=== PATIENT | male | born 1950 | race Two or more races ===

== ENCOUNTER 2017-09-14 09:20 | Emergency (ER) | payer OTHER ==
[2017-09-14 09:34] VITALS: BMI 31.1
--- NOTE | 2017-09-14 10:16 | PDOC ---
History of Present Illness - General History Source: Patient Exam Limitations: No Limitations - History of Present Illness Initial Comments: 09/14/17 12:03 The patient is a 66 year old male with past medical history of HTN, chronic back pain, anxiety (no medication), depression (no medication) and hospitalization for Hep C (?) in the past presents to the emergency department with epigastric pain. The patient reports an onset of intermittent epigastric pain for the past 6 months, with initial duration of 5-6 minutes thats been progressively shortening and severity has been improving. The patient states the pain presents at the epigastric region with radiating burning sensation that diffuses across the upper quadrant. The patient reports the pain is aggravated shortly after eating, with occasional relief noted after drinking water. Not significantly wose on a reclined position. The patient reports associated symptom of very little nausea and generalized warmth. The patient states he was referred for a colonoscopy and was recommended to perform a home stool test kit, which he didnt follow through. The patient states he was referred to a GI doctor by his PCP, but didnt follow up. Denies associated vomiting, hemoptysis, diarrhea, melena, bpr, diarrhea, cp, sob, worsening on exertion, cough, numbness/tingling/weakness. The patient reports a secondary concern of bilateral lower extremity edema. The patient reports a history of intermittent onset of leg swelling, thats been progressively worsening for the last 3 days, without pain or relief. The patient states the swelling is aggravated by ambulation, with relief noted in the morning. Denies associated orthopnea, landers, cp, sob, hemoptysis, leg pain. Allergies: NKDA Social history: The patient reports the use of 10 cigarettes per daily. Denies the use of alcohol or recreational drugs. Surgical history: None reported. PCP: Dr. Harrison Funez <Antonella James - Last Filed: 09/14/17 12:03> <Eliu Ann - Last Filed: 09/14/17 13:55> - General Chief Complaint: Pain, Acute Stated Complaint: ABD PAIN Time Seen by Provider: 09/14/17 09:36 Past History <Antonella James - Last Filed: 09/14/17 12:03> - Past Medical History COPD: No DVT: No Dementia: No HTN: Yes Liver Disease: (HEPATITIS C) - Suicide/Smoking/Psychosocial Hx Smoking History: Current every day smoker Have you smoked in the past 12 months: No Number of Cigarettes Smoked Daily: 10 Information on smoking cessation initiated: No Hx Alcohol Use: No Drug/Substance Use Hx: No Substance Use Type: None <Eliu Ann - Last Filed: 09/14/17 13:55> - Past Medical History Allergies/Adverse Reactions: Allergies Allergy/AdvReac Type Severity Reaction Status Date / Time No Known Allergies Allergy Verified 09/14/17 09:30 Home Medications: Ambulatory Orders Amlodipine Besylate [Norvasc -] 5 mg PO DAILY 09/14/17 Losartan/Hydrochlorothiazide [Losartan-Hctz 100-25 mg Tab] 1 each PO DAILY 09/14 Omeprazole 20 mg PO DAILY 09/14/17 Oxycodone HCl/Acetaminophen [Oxycodone-Acetaminophen 10-325] 1 each PO PRN 09/14 Ranitidine HCl [Zantac 75] 75 mg PO DAILY #14 tablet 09/14/17 Review of Systems - Review of Systems Able to Perform ROS?: Yes Comments:: 09/14/17 12:04 CONSTITUTIONAL: No reported: Fever, Chills, Diaphoresis, Generalized Weakness, Malaise, Loss of Appetite HEENT: No reported: Rhinorrhea, Nasal Congestion, Throat Pain, Throat Swelling, Difficulty Swallowing, Mouth Swelling, Ear Pain, Eye Pain, Visual Changes CARDIOVASCULAR: No reported: Chest Pain, Syncope, Palpitations, Irregular Heart Rate, Lightheadedness, Peripheral Edema RESPIRATORY: No reported: Cough, Shortness of Breath, SOB with Exertion, Orthopnea, Wheezing , Stridor, Hemoptysis GASTROINTESTINAL: (+) Epigastric pain w/ burning. Nausea. No reported: Abdominal Distension,, Vomiting, Diarrhea, Constipation, Melena, Hematochezia GENITOURINARY: No reported: Dysuria, Frequency, Hesitancy, Flank Pain, Genital Pain MUSCULOSKELETAL: (+) Bilateral lower extremity edema. No reported: Myalgia, Arthralgia, Joint Swelling, Back pain, Neck Pain SKIN: No reported: Rash, Itching, Pallor HEMEATOLOGIC/IMMUNOLOGIC: No reported: Easy Bleeding, Easy Bruising, Lymphadenopathy, Frequent infections ENDOCRINE: No reported: Unexplained Weight Gain, Unexplained Weight Loss, Heat Intolerance , Cold Intolerance NEUROLOGIC: No reported: Headache, Focal Weakness, Paresthesias, Vertigo, Lightheadedness, Unsteady Gait, Seizure, Mental Status Changes, Incontinence PSYCHIATRIC: No reported: Anxiety, Depression <Antonella James - Last Filed: 09/14/17 12:03> *Physical Exam - Vital Signs Last Vital Signs Temp Pulse Resp BP Pulse Ox 98.9 F 60 17 122/71 98 09/14/17 12:02 09/14/17 12:02 09/14/17 12:02 09/14/17 12:02 09/14/17 12:02 - Physical Exam Comments: 09/14/17 12:04 GENERAL: The patient is awake, alert, and fully oriented, Nontoxic - in no acute distress. HEAD: Normocephalic, atraumatic. EYES: extraocular movements intact, sclera anicteric, conjunctiva clear. ENT: Normal voice, Moist mucous membranes. NECK: Normal range of motion, supple LUNGS: Breath sounds equal, clear to auscultation bilaterally. No wheezes, no rhonchi, no rales. HEART: Regular rate and rhythm, without murmur, rub or gallop. ABDOMEN: Soft, nontender, No guarding, no rebound.No CVA tenderness EXTREMITIES: Normal range of motion, +1pitting edema b/l, neg homans sign NEUROLOGICAL: No facial assymetry, Normal speech, PSYCH: Normal mood, normal affect. SKIN: Warm, Dry, normal turgor, <Antonella James - Last Filed: 09/14/17 12:03> - Vital Signs Last Vital Signs Temp Pulse Resp BP Pulse Ox 98.1 F 84 16 142/78 99 09/14/17 09:30 09/14/17 09:30 09/14/17 09:30 09/14/17 09:30 09/14/17 09:30 <Eliu Ann - Last Filed: 09/14/17 13:55> Heart Score/ECG Review - ECG Impressions Comment:: 09/14/17 11:23 Twelve-lead EKG was performed and reviewed by me. There is normal sinus rhythm with a normal rate. rate of 64 The axis is normal. The intervals are normal. There is normal R wave progression There are no ST or T wave abnormalities. <Eliu Ann - Last Filed: 09/14/17 13:55> ED Treatment Course - LABORATORY CBC & Chemistry Diagram: 09/14/17 10:36 09/14/17 10:36 - ADDITIONAL ORDERS Additional order review: Laboratory Results 09/14/17 10:36 Sodium 142 Potassium 4.2 Chloride 105 Carbon Dioxide 32 Anion Gap 5 L BUN 8 Creatinine 0.9 Creat Clearance w eGFR > 60 Random Glucose 85 Calcium 8.8 Total Bilirubin 0.9 AST 51 H ALT 41 Alkaline Phosphatase 129 H Total Protein 7.3 Albumin 3.8 09/14/17 10:36 RBC 4.25 MCV 98.1 H MCHC 33.8 RDW 13.5 MPV 9.0 Neutrophils % 30.3 L Lymphocytes % 56.6 H Monocytes % 9.7 Eosinophils % 2.3 Basophils % 1.1 - Medications Given in the ED: ED Medications Discontinued Medications Generic Name Dose Route Start Last Admin Trade Name Priyanka PRN Reason Stop Dose Admin Al Hydroxide/Mg Hydroxide 30 ml 09/14/17 10:18 09/14/17 10:40 Mylanta Suspension - PO 09/14/17 10:19 30 ml ONCE ONE Administration Famotidine/Sodium Chloride 20 mg in 50 mls @ 100 mls/hr 09/14/17 10:18 10:40 Pepcid 20 Mg Premixed Ivpb - IVPB 09/14/17 10:47 100 mls/hr ONCE ONE Administration <Antonella James - Last Filed: 09/14/17 12:03> - LABORATORY CBC & Chemistry Diagram: 09/14/17 10:36 09/14/17 10:36 <Eliu Ann - Last Filed: 09/14/17 13:55> Medical Decision Making - Medical Decision Making 09/14/17 10:13 66y M pmhx htn, anxiety, HCV<?> smoker, present s with LUQ--> epigastric abdomnial pain since feli, lasting a few minutes, is constant, worse after he heats, not worse when reclined. Pt endorses feeling 'hot' wiht these episodes , pt denies fever, changes of weight pt ntoes he eats alot of spicey foods, caffeinated foods. also ntoes that he was been eating more salt from a new cook who he thinks uses a new seasoning. pt presents due to worsening LE edema, typically comes and goes but is worse recently. No associated, cp, sob, hemoptysis, orthopnea pts exam unremarkable beside +pitting edema b/l w/o homans sign suspect possible gastritis/gerd, but consider pancreatitis, acs will ck cbc, cmp, lipase, screening ekg suspect pts edema due to dependent edema will ck labs to r/o liver/renal failure. no signs of chf will refer pt to GI for outpatient angament/endoscopy 09/14/17 13:48 labs unremerkable lipase normal pt feeling improved will dc pt with zantac and gi fu return precautions were discussed I discussed the physical exam findings, ancillary test results and final diagnoses with the patient. I answered all of the patient's questions. The patient was satisfied with the care received and felt comfortable with the discharge plan and treatment plan. The patient will call their primary care physician within 24 hours to arrange follow-up and will return to the Emergency Department with any new, persistent or worsening symptoms. <Eliu Ann - Last Filed: 09/14/17 13:55> *DC/Admit/Observation/Transfer - Attestations Scribe Attestion: 09/14/17 12:04 Documentation prepared by Antonella James, acting as medical record librarian for Eliu Ann MD. <Antonella James - Last Filed: 09/14/17 12:03> - Discharge Dispostion Decision to Admit order: No <Eliu Ann - Last Filed: 09/14/17 13:55> Diagnosis at time of Disposition: GERD (gastroesophageal reflux disease) Qualifiers: Esophagitis presence: without esophagitis Qualified Code(s): K21.9 - Gastro- esophageal reflux disease without esophagitis - Discharge Dispostion Disposition: HOME Condition at time of disposition: Improved - Prescriptions Prescriptions: Ranitidine HCl [Zantac 75] 75 mg PO DAILY #14 tablet - Referrals Referrals: Harrison Funez [Primary Care Provider] - Marvin Calhoun DO [Staff Physician] - - Patient Instructions Printed Discharge Instructions: DI for Gastroesophageal Reflux Disease (GERD) Additional Instructions: Return to the emergency department immediately with ANY new, persistent or worsening symptoms including any recurrent abdominal pain, fevers, chills, inability to tolerate oral intake or any other concerns. Stay away from alcohol, spicy foods, caffeine, acidic/sour foods. Take maalox if you have burning for relief. Continue using zantac every night for one week. You MUST call and follow up with your doctor and smoke chaser within 5 days for further evaluation of your symptoms. Your emergency department visit is not complete without a followup with your doctor for reevaluation. Results were discussed with you. Please make sure your doctor reviews the results of your emergency evaluation. Print Language: SYRIAC - Post Discharge Activity
[2017-09-14] MEDS ORDERED: MAG HYDROX/AL HYDROX/SIMETH -MYLANTA- ORAL SUSPENSION PO ONE (10:18)
[2017-09-14] MEDS ORDERED: FAMOTIDINE 20 MG/50 ML IVPB 20 MG/50 ML MG IVPB ONE ×2 (10:18→10:21)
[2017-09-14] MEDS ORDERED: MAG HYDROX/AL HYDROX/SIMETH 30 ML UNIT-DOSE CUP ONE (10:21)
[2017-09-14 10:47] LABS: BASO % 1.1 % (0-2.0); EOS % 2.3 % (0-4.5); HEMATOCRIT 41.7 % (35.4-49); HEMOGLOBIN 14.1 GM/dL (11.7-16.9); LYMPH % 56.6 % (8-40); MCH 33.1 pg (25.7-33.7); MCHC 33.8 g/dl (32.0-35.9); MEAN CELL VOLUME 98.1 fl (80-96); MONO % 9.7 % (3.8-10.2); NEUT % 30.3 % (42.8-82.8); PLATELET COUNT 196 K/MM3 (134-434); RBC 4.25 M/mm3 (4.00-5.60); RDW 13.5 % (11.9-15.9); WHITE BLOOD COUNT 5.1 K/mm3 (4.0-10.0)
[2017-09-14 11:27] LABS: ALBUMIN 3.8 g/dl (3.4-5.0); ANION GAP 5 (8-16); BLOOD UREA NITROGEN 8 mg/dL (7-18); CALCIUM 8.8 mg/dL (8.5-10.1); CHLORIDE 105 mmol/L (98-107); CO2 32 mmol/L (21-32); CREATININE 0.9 mg/dL (0.7-1.3); GLUCOSE,RANDOM 85 mg/dL (74-106); POTASSIUM 4.2 mmol/L (3.5-5.1); SGOT/AST 51 U/L (15-37); SGPT/ALT 41 U/L (12-78); SODIUM 142 mmol/L (136-145)
[2017-09-14 11:28] LABS: ALK PHOS 129 U/L (45-117); BILIRUBIN,TOTAL 0.9 mg/dL (0.2-1.0); TOT PROT 7.3 g/dl (6.4-8.2)
--- NOTE | 2017-09-14 11:29 | PDOC ---
*Physical Exam - Vital Signs Last Vital Signs Temp Pulse Resp BP Pulse Ox 98.1 F 84 16 142/78 99 09/14/17 09:30 09/14/17 09:30 09/14/17 09:30 09/14/17 09:30 09/14/17 09:30 - Physical Exam Comments: 09/14/17 11:28 NAD ED Treatment Course - LABORATORY CBC & Chemistry Diagram: 09/14/17 10:36 09/14/17 10:36 - ADDITIONAL ORDERS Additional order review: 09/14/17 10:36 RBC 4.25 MCV 98.1 H MCHC 33.8 RDW 13.5 MPV 9.0 Neutrophils % 30.3 L Lymphocytes % 56.6 H Monocytes % 9.7 Eosinophils % 2.3 Basophils % 1.1 - Medications Given in the ED: ED Medications Discontinued Medications Generic Name Dose Route Start Last Admin Trade Name Priyanka PRN Reason Stop Dose Admin Al Hydroxide/Mg Hydroxide 30 ml 09/14/17 10:18 09/14/17 10:40 Mylanta Suspension - PO 09/14/17 10:19 30 ml ONCE ONE Administration Famotidine/Sodium Chloride 20 mg in 50 mls @ 100 mls/hr 09/14/17 10:18 10:40 Pepcid 20 Mg Premixed Ivpb - IVPB 09/14/17 10:47 100 mls/hr ONCE ONE Administration Medical Decision Making - Medical Decision Making 09/14/17 11:25 focused ED ultrasound RUQ indication : epigastric pain focused ED ultrasound ruq gallbladder scanned in two planes with curvilinear probe. no stones, normal wall thickenss . no edema. no pericholecystic fluid. no pericholecystic fluid. negative sonographic gomez's sign. GB wall measured 2 mm. CBD measured 3.5 mm impression: normal gallbladder. ruby/ patricia. 09/14/17 11:28 *DC/Admit/Observation/Transfer - Referrals Referrals: Manuel Funez [Primary Care Provider] - - Patient Instructions - Post Discharge Activity
[2017-09-14 13:24] LABS: LIPASE 114 U/L (73-393)
--- NOTE | 2017-09-14 13:24 | EKG ---
Test Reason : Blood Pressure : / mmHG Vent. Rate : 064 BPM Atrial Rate : 064 BPM P-R Int : 186 ms QRS Dur : 106 ms QT Int : 428 ms P-R-T Axes : 014 008 -03 degrees QTc Int : 441 ms NORMAL SINUS RHYTHM NORMAL ECG NO PREVIOUS ECGS AVAILABLE Confirmed by James Harry ([id number]) on 09/14/2017 1:23:48 PM Referred By: Confirmed By:James Harry
[2017-09-14 14:10] VITALS: BP 133/71; PULSE 72; TEMP 98.3
== END 2017-09-14 14:00 | disposition home or self-care (01) ==
LOC: JER 09:20
PROC: 3E033GC Introduction of Other Therapeutic Substance into Peripheral Vein, Percutaneous Approach (ICD-10-PCS; principal; 2017-09-14)
DX: K52.9 Noninfective gastroenteritis and colitis, unspecified (principal); I10 Essential (primary) hypertension; F41.9 Anxiety disorder, unspecified; F32.9 Major depressive disorder, single episode, unspecified; M54.89 Other dorsalgia; G89.29 Other chronic pain; B18.2 Chronic viral hepatitis C
CPT/HCPCS: 36415; 80053; 83690; 85025; 93005; 93010; 96365; 99283-25